=== PATIENT | female | born 1945 | race Caucasian/White ===

== ENCOUNTER 2017-01-22 11:32 | Inpatient (IN) | payer MEDICARE ==
[~2017-01-22] VITALS: Ht 160 cm; Wt 70.3 kg
[2017-01-22] MEDS ORDERED: HYDR12.5 PO (12:44)
[2017-01-22] MEDS ORDERED: CYAN10009 PO (12:44)
[2017-01-22] MEDS ORDERED: CALC950T2 PO (13:29)
[2017-01-22] MEDS ORDERED: OMEG1CAP PO (13:29)
[2017-01-22] MEDS ORDERED: METF500T4 PO (13:29)
[2017-01-22] MEDS ORDERED: LEVO25TA2 PO (13:29)
[2017-01-22] MEDS ORDERED: CHOL100062 PO (13:29)
[2017-01-22] MEDS ORDERED: SIMV20TA6 PO (13:29)
[2017-01-22] MEDS ORDERED: CARB-93 PO (13:29)
[2017-01-22 16:12] VITALS: BP 119/44
[2017-01-22] MEDS: METFORMIN HCL 500 MG TABLET PO SCH (18:51)
[2017-01-22] MEDS: CARBIDOPA/LEVODOPA 25-100MG TABLET PO SCH ×3 (18:52→21:25)
[2017-01-22] MEDS: SIMVASTATIN 20 MG TABLET PO SCH (18:59)
--- NOTE | 2017-01-22 19:35 | NUR ---
Received pt in bed, awake alert and oriented watching TV. No acute distress noted. Verbally responsive and able to make needs known. Denies any pain or discomfort at this time. All safety measures and fall precautions maintained. Call light within reach. Will continue to monitor.
[2017-01-22] MEDS ORDERED: SIMVASTATIN 20 MG TABLET PO SCH (21:00)
--- NOTE | 2017-01-22 21:00 | NUR ---
Patient is new admission. Has order for Sinemet 25-100 mg QID, per pt that is what she takes at home regularly. According to AM nurse, pharmacy made aware of frequency of medication and agreed upon unscheduled administration time. Attempted to give 2100 dose but unavailable. Gave medication on unscheduled time of 2100 this shift (01/22/2017). Well tolerated. Charge nurse made aware. Will continue to monitor.
[2017-01-22] MEDS: SENNOSIDES/DOCUSATE SODIUM TABLET PO SCH (21:25)
[2017-01-23] MEDS: LEVOTHYROXINE SODIUM 50 MCG TABLET PO SCH (06:18)
--- NOTE | 2017-01-23 06:28 | NUR ---
Pt slept intermittently throughout the evening. No acute distress noted. Denies pain or discomfort. All due medications given as ordered by MD. Well tolerated. Kept clean and dry. All needs met promptly. All safety measures and fall precautions maintained. Call light within reach. Will continue to monitor.
[2017-01-23] MEDS ORDERED: LEVOTHYROXINE SODIUM 25 MCG TABLET PO SCH (07:00)
[2017-01-23 07:54] LABS: CARBON DIOXIDE 30 mmol/L (21-32); CHLORIDE 107 mmol/L (98-107); CHOLESTEROL 143 mg/dL (<200); CREATININE 0.8 mg/dL (0.6-1.3); GLUCOSE 107 mg/dL (74-106); HDL CHOLESTEROL 49 mg/dL (40-60); PHOSPHOROUS 3.4 mg/dL (2.5-4.9); POTASSIUM 4.3 mmol/L (3.5-5.1); TRIGLYCERIDES 91 MG/DL (30-150); UREA NITROGEN, BLOOD 21 mg/dL (7-18)
[2017-01-23 08:04] LABS: BASOPHILS % (AUTO) 0.3 % (0.0-2.0); EOSINOPHILS # (AUTO) 0.1 K/uL (0.0-0.7); EOSINOPHILS % (AUTO) 3.3 % (0.0-7.0); HEMATOCRIT 37.6 % (37-47); HEMOGLOBIN 12.6 G/DL (12.0-16.0); LYMPHOCYTES # (AUTO) 1.7 K/UL (0.8-4.8); LYMPHOCYTES % (AUTO) 37.7 % (20.5-51.5); MEAN CORPUSCULAR HEMOGLOBIN 29.7 UUG (27.0-31.0); MEAN CORPUSCULAR HGB CONC 34 g/dL (32.0-37.0); MEAN CORPUSCULAR VOLUME 88.5 FL (81.0-99.0); MONOCYTES # (AUTO) 0.5 K/UL (0.1-1.30); MONOCYTES % (AUTO) 10.6 % (0.0-11.0); NEUTROPHILS # (AUTO) 2.1 K/UL (1.8-8.9); NEUTROPHILS % (AUTO) 48.1 % (38.5-71.5); PLATELET COUNT (AUTO) 144 K/UL (150-450); RED BLOOD CELL COUNT(AUTO) 4.25 MIL/UL (4.2-5.4); WHITE BLOOD COUNT (AUTO) 4.4 K/UL (4.0-11.2)
--- NOTE | 2017-01-23 08:04 | NUR ---
Received patient awake, alert x4. In bed with occupational therapy. Not in any form of distress. Denies any pain but with generalized aches, patient said she does not need pain medications at this time.
[2017-01-23 08:38] VITALS: BP 125/61
[2017-01-23] MEDS: HYDROCHLOROTHIAZIDE 12.5 MG CAPSULE PO SCH (08:46)
[2017-01-23] MEDS: CARBIDOPA/LEVODOPA 25-100MG TABLET PO SCH ×4 (08:46→21:02)
[2017-01-23] MEDS: CHOLECALCIFEROL 1,000 UNIT TABLET PO SCH ×3 (08:46→18:06)
[2017-01-23] MEDS: CALCIUM CITRATE 950MG TAB PO SCH (08:46)
[2017-01-23] MEDS: OMEGA-3 FATTY ACIDS/FISH OIL CAPSULE PO SCH ×3 (08:46→18:06)
[2017-01-23] MEDS ORDERED: BISACODYL 5 MG TABLET.DR PO PRN (11:45)
[2017-01-23] MEDS ORDERED: MAGNESIUM CITRATE 296 ML BOTTLE PO ONE (11:45)
[2017-01-23] MEDS ORDERED: ACETAMINOPHEN 325 MG TABLET PO PRN (11:45)
--- NOTE | 2017-01-23 14:20 | NUR ---
Loose stools after Magnesium Citrate given. 3 episodes of loose stools, non-foul smelling no associated vomiting or abdominal pain noted. Paged and called Dr. Blount. No call back as of the moment.
--- NOTE | 2017-01-23 15:29 | NUR ---
No loose stools as of the moment. No new orders. Will continue to monitor
--- NOTE | 2017-01-23 15:32 | NUR ---
Dr. Blount informed. No new orders at this time. Will continue to monitor.
[2017-01-23] MEDS: METFORMIN HCL 500 MG TABLET PO SCH (18:06)
[2017-01-23] MEDS: SIMVASTATIN 20 MG TABLET PO SCH (18:06)
[2017-01-23 19:57] VITALS: BP 118/89
--- NOTE | 2017-01-23 20:00 | NUR ---
RECEIVED PATIENT AWAKE IN BED. PATIENT IS A/OX 4. DENIES PAIN OR DISCOMFORT. NO RESP. DISTRESS NOTED. VS WNL. PATIENT REQUESTING FOR SLEEPING PILL. WILL CALL OUT TO MD FOR FURTHER ORDERS. CALL LIGHT IN REACH. BED ALARM ON. ALL NEEDS ATTENDED. WILL CONTINUE TO MONITOR.
--- NOTE | 2017-01-23 20:05 | NUR ---
RECEIVED ORDER FOR PATIENT TO HAVE RESTORIL 15MG PO PRN FOR SLEEP. WILL CONTINUE TO MONITOR.
[2017-01-23] MEDS: SENNOSIDES/DOCUSATE SODIUM TABLET PO SCH (21:00)
[2017-01-23] MEDS: TEMAZEPAM 15 MG CAPSULE PO PRN (21:02)
--- NOTE | 2017-01-23 21:05 | NUR ---
PATIENT GIVEN RESTORIL 15 MG PO PRN FOR SLEEP. BED ALARM ON. ALL NEEDS ATTENDED.
[2017-01-23] MEDS ORDERED: TEMAZEPAM 15 MG CAPSULE ONE (21:07)
--- NOTE | 2017-01-24 | NUR ---
PATIENT ASLEEP IN BED. NO RESP. DISTRESS NOTED. BED ALARM ON. CALL LIGHT IN REACH. ALL NEEDS ATTENDED.
--- NOTE | 2017-01-24 06:15 | NUR ---
PATIENT AWAKE IN BED. SLEPT WELL THROUGHOUT THE NIGHT. RESTORIL EFFECTIVE. DENIES PAIN OR DISCOMFORT. NO RESP. DISTRESS NOTED. BED ALARM ON. CALL LIGHT IN REACH. ALL NEEDS ATTENDED. WILL CONTINUE TO MONITOR.
[2017-01-24] MEDS: LEVOTHYROXINE SODIUM 50 MCG TABLET PO SCH (06:46)
--- NOTE | 2017-01-24 08:00 | NUR ---
Received patient. awake, alert x4. Denies any pain, up with occupational therapy. Tolerating therapy well.
[2017-01-24 08:20] VITALS: BP 119/37
[2017-01-24] MEDS: CARBIDOPA/LEVODOPA 25-100MG TABLET PO SCH ×4 (08:29→20:34)
[2017-01-24] MEDS: CHOLECALCIFEROL 1,000 UNIT TABLET PO SCH ×3 (08:29→16:46)
[2017-01-24] MEDS: CYANOCOBALAMIN 1,000 MCG TABLET PO SCH (08:29)
[2017-01-24] MEDS: OMEGA-3 FATTY ACIDS/FISH OIL CAPSULE PO SCH ×3 (08:29→16:45)
[2017-01-24] MEDS: CALCIUM CITRATE 950MG TAB PO SCH (08:29)
[2017-01-24] MEDS: HYDROCHLOROTHIAZIDE 12.5 MG CAPSULE PO SCH (08:29)
--- NOTE | 2017-01-24 11:30 | NUR ---
UP WITH PHYSICAL THERAPY. TOLERATING THERAPY WELL.
[2017-01-24] MEDS: SIMVASTATIN 20 MG TABLET PO SCH (17:04)
[2017-01-24] MEDS: METFORMIN HCL 500 MG TABLET PO SCH (17:04)
--- NOTE | 2017-01-24 18:43 | NUR ---
Patient sitting in wheel chair. Awake, alert x4. Denies any pain . Not in any form of distress. Call light within reach.
--- NOTE | 2017-01-24 20:00 | NUR ---
RECEIVED PATIENT AWAKE IN BED. A/O X4. DENIES PAIN OR DISCOMFORT. NO RESP. DISTRESS NOTED. CALL LIGHT IN REACH. ALL NEEDS ATTENDED. BED ALARM ON. WILL CONTINUE TO MONITOR.
[2017-01-24 20:06] VITALS: BP 117/55
[2017-01-24] MEDS: SENNOSIDES/DOCUSATE SODIUM TABLET PO SCH (20:33)
--- NOTE | 2017-01-24 21:00 | NUR ---
PATIENT GIVEN RESTORIL 15MG PO PRN FOR SLEEP REQUESTED BY PATIENT. BED ALARM ON. CALL LIGHT IN REACH. ALL NEEDS ATTENDED. WILL CONTINUE TO MONITOR.
[2017-01-24] MEDS: TEMAZEPAM 15 MG CAPSULE PO PRN (21:04)
--- NOTE | 2017-01-24 23:01 | NUR ---
PATIENT ASLEEP IN BED. SLEEPING WELL. NO RESP. DISTRESS NOTED. CALL LIGHT IN REACH. ALL NEEDS ATTENDED. WILL CONTINUE TO MONITOR.
--- NOTE | 2017-01-25 06:00 | NUR ---
PATIENT ASLEEP IN BED. RESTORIL EFFECTIVE. NO S/S OF PAIN OR DISCOMFORT. NO RESP. DISTRESS NOTED. BED ALARM ON. CALL LIGHT IN REACH. ALL NEEDS ATTENDED.
[2017-01-25] MEDS: LEVOTHYROXINE SODIUM 50 MCG TABLET PO SCH (06:34)
[2017-01-25 08:00] VITALS: BP 112/55
[2017-01-25] MEDS: OMEGA-3 FATTY ACIDS/FISH OIL CAPSULE PO SCH ×3 (08:15→17:26)
[2017-01-25] MEDS: HYDROCHLOROTHIAZIDE 12.5 MG CAPSULE PO SCH (08:15)
[2017-01-25] MEDS: CHOLECALCIFEROL 1,000 UNIT TABLET PO SCH ×3 (08:15→17:26)
[2017-01-25] MEDS: CARBIDOPA/LEVODOPA 25-100MG TABLET PO SCH ×4 (08:15→20:37)
[2017-01-25] MEDS: CALCIUM CITRATE 950MG TAB PO SCH (08:15)
--- NOTE | 2017-01-25 08:15 | NUR ---
Received patient awake, alert x4. Sitting up bed. Not in any form of distress. Denies any pain. Will continue to monitor.
--- NOTE | 2017-01-25 12:00 | NUR ---
Informed Dr. Anuj Gale of podiatry consult. Left message on cellphone.
[2017-01-25] MEDS: SIMVASTATIN 20 MG TABLET PO SCH (17:26)
[2017-01-25] MEDS: METFORMIN HCL 500 MG TABLET PO SCH (17:26)
--- NOTE | 2017-01-25 19:30 | NUR ---
Seen patient during rounds seated on her wheelchair watching TV. Patient is A/O x4, alert and verbally responsive. Discussed to patient the importance of taking her stool softer. Patient understood about the need to take the medication, she said she will take tonight's dose. Reminded patient to use call light when in need. Provided safety measures.
[2017-01-25 20:03] VITALS: BP 126/64
[2017-01-25] MEDS: SENNOSIDES/DOCUSATE SODIUM TABLET PO SCH (20:38)
--- NOTE | 2017-01-25 21:15 | NUR ---
Seen by Dr. Anuj Gale licensed investment sales assistant. Left middle toe's callus scraped, applied with triple antibiotic ointment and covered with band-aid. Nail also trimmed. With no new order.
[2017-01-25] MEDS: TEMAZEPAM 15 MG CAPSULE PO PRN (22:01)
[2017-01-26] MEDS: LEVOTHYROXINE SODIUM 50 MCG TABLET PO SCH (06:54)
--- NOTE | 2017-01-26 07:48 | NUR ---
Patient slept well last night. Denies of pain. Vitals are stable. Breathing even and non labored. Will endorse to am shift nurse.
[2017-01-26] MEDS: CARBIDOPA/LEVODOPA 25-100MG TABLET PO SCH ×4 (08:16→20:57)
[2017-01-26] MEDS: CALCIUM CITRATE 950MG TAB PO SCH (08:16)
[2017-01-26] MEDS: CHOLECALCIFEROL 1,000 UNIT TABLET PO SCH ×3 (08:16→17:15)
[2017-01-26] MEDS: CYANOCOBALAMIN 1,000 MCG TABLET PO SCH (08:16)
[2017-01-26] MEDS: HYDROCHLOROTHIAZIDE 12.5 MG CAPSULE PO SCH (08:16)
[2017-01-26] MEDS: OMEGA-3 FATTY ACIDS/FISH OIL CAPSULE PO SCH ×3 (08:16→17:14)
[2017-01-26 08:46] VITALS: BP 126/61
--- NOTE | 2017-01-26 09:05 | NUR ---
pt seen on rounding. pt continues to be stable with vitals. pt tolerates room air and afebrile. pt continues to have unsteady gait. pt states that she didnt sleep very well. pt refused to have early am pt schedule. pt assisted to the bathroom. used a wheelchair for transport. will continue to monitor.
[2017-01-26] MEDS: METFORMIN HCL 500 MG TABLET PO SCH (17:15)
[2017-01-26] MEDS: SIMVASTATIN 20 MG TABLET PO SCH (17:15)
--- NOTE | 2017-01-26 18:26 | NUR ---
pt stable throughout the day. pt ate all meals and offered assistance. pt participated in therapy with no pain noted. pt states she wanted to leave. pt no signs of acute distress. no pain on toe. will endorse to civil engineer nurse.
--- NOTE | 2017-01-26 20:00 | NUR ---
Patient already laying on bed saying she's really tired and she's ready to sleep. Patient requested her restoril so she can sleep early. Middle Toe finger checked, no s/s of any infection. Safety measures provided. Call light in reach. Will continue to monitor.
[2017-01-26 20:10] VITALS: BP 126/51
[2017-01-26] MEDS: SENNOSIDES/DOCUSATE SODIUM TABLET PO SCH (21:00)
[2017-01-26] MEDS: TEMAZEPAM 15 MG CAPSULE PO PRN (21:03)
[2017-01-27] MEDS: LEVOTHYROXINE SODIUM 50 MCG TABLET PO SCH (07:04)
[2017-01-27] MEDS: CHOLECALCIFEROL 1,000 UNIT TABLET PO SCH ×3 (08:17→17:18)
[2017-01-27] MEDS: CARBIDOPA/LEVODOPA 25-100MG TABLET PO SCH ×4 (08:18→20:43)
[2017-01-27] MEDS: CALCIUM CITRATE 950MG TAB PO SCH (08:18)
[2017-01-27] MEDS: OMEGA-3 FATTY ACIDS/FISH OIL CAPSULE PO SCH ×3 (08:18→17:18)
[2017-01-27] MEDS: HYDROCHLOROTHIAZIDE 12.5 MG CAPSULE PO SCH (08:18)
[2017-01-27 08:27] VITALS: BP 107/51
--- NOTE | 2017-01-27 08:58 | NUR ---
pt seen on rounding. t continues to take meds whole. no pain noted. pt states that she had slept better than previous nights. pt continues to refuse early PT sessions. will continue to monitor.
--- NOTE | 2017-01-27 13:56 | NUR ---
INTERDISCIPLINARY TEAM SUMMARY
--- NOTE | 2017-01-27 14:44 | NUR ---
pt has no new injuries. photo of toe taken. no signs of infection. will continue to monitor.
[2017-01-27] MEDS: METFORMIN HCL 500 MG TABLET PO SCH (17:18)
[2017-01-27] MEDS: SIMVASTATIN 20 MG TABLET PO SCH (17:18)
--- NOTE | 2017-01-27 18:49 | NUR ---
pt stable throughout the day. pt continues to have no pain and participates in therapy. pt had no new concerns. pt remains to take pills whole. will endorse to division engineer nurse.
[2017-01-27 19:45] VITALS: BP 128/61
--- NOTE | 2017-01-27 20:11 | NUR ---
Pt. seated on her wheelchair watching TV. Breathing even and nonlabored. Patient requested for her sleeping pill, pt. wanted to rest early. Safety measures provided, made sure that her wheelchair is locked. Call light in reach. will continue to monitor the patient.
[2017-01-27] MEDS: TEMAZEPAM 15 MG CAPSULE PO PRN (20:43)
[2017-01-27] MEDS: SENNOSIDES/DOCUSATE SODIUM TABLET PO SCH (21:00)
--- NOTE | 2017-01-27 21:30 | NUR ---
pt. went to bed, (from her wheelchair) with minimal assist. Turned the lights off and placed call light in reach.
[2017-01-28] MEDS: LEVOTHYROXINE SODIUM 50 MCG TABLET PO SCH (06:26)
--- NOTE | 2017-01-28 07:14 | NUR ---
pt. slept the whole night. Vitals signs stable. breathing even and nonlabored. will endorse to AM nurse.
[2017-01-28 07:30] VITALS: BP 126/62
--- NOTE | 2017-01-28 08:40 | NUR ---
Floor Mechanic Cad Specialist met with patient at bedside to assess her needs and provide support. Patient is a 71 year old female with history of HTN, DM, Parkinson's Dis. and MS who presented with recent progressive weakness, ataxia, falls and difficulty walking. She is therefore admitted to ARU due to functional decline and impaired mobility. Patient stated that she has difficulty getting around her house without her (also a patient in ARU) there to help her. Mental Status: Patient appeared alert and oriented x4 during interview. She presented with depressed and anxious mood with congruent affect. Patient appeared tearful at times throughout the interview. Patient stated, "I don't want to be here anymore...I just want to go back home." Pt reported that she "can do most things myself around the house," however, was admitted to ARU for functional decline and impaired mobility. Patient's insight and judgment appear to be limited. Patient has been in the hospital since January 22, 2017. Patient is pleasant and cooperative throughout interview. Pt reported that she linnea best when she can look at pictures of her grandchildren on her iPad. Pt appears to be coping well with PT and OT. She stated, "I love working with the people here...they really push you." Support System: Patient is and mentioned 1 son who lives in the [facility] area. During the interview, patient's and two friends were bedside. Patient stated, "I'm so sumeet to have friends like these." Patient reported that she is also involved in her [employer] and is a member of a support group there called the "[employer]," with a mindset of "always be better at supporting each other." Goals: Patient reports that her goal is to be able to live in her home. Interventions: Cad Specialist engaged in active listening. SW provided emotional support and counseling. SW will provide linkage to case management. SW provided caregiving referrals to patient and family. SW will encourage pt to comply with rehab goals.
[2017-01-28] MEDS: CHOLECALCIFEROL 1,000 UNIT TABLET PO SCH ×3 (08:42→17:49)
[2017-01-28] MEDS: OMEGA-3 FATTY ACIDS/FISH OIL CAPSULE PO SCH ×3 (08:42→17:50)
[2017-01-28] MEDS: CARBIDOPA/LEVODOPA 25-100MG TABLET PO SCH ×4 (08:42→20:48)
[2017-01-28] MEDS: HYDROCHLOROTHIAZIDE 12.5 MG CAPSULE PO SCH (08:42)
[2017-01-28] MEDS: CYANOCOBALAMIN 1,000 MCG TABLET PO SCH (08:42)
[2017-01-28] MEDS: CALCIUM CITRATE 950MG TAB PO SCH (08:43)
--- NOTE | 2017-01-28 13:39 | NUR ---
I agree Addendum: 01/28/17 at 1341 by AMANDA CHACON OT Amended: Links added.
[2017-01-28] MEDS: METFORMIN HCL 500 MG TABLET PO SCH (17:50)
[2017-01-28] MEDS: SIMVASTATIN 20 MG TABLET PO SCH (17:50)
--- NOTE | 2017-01-28 19:30 | NUR ---
RECEIVED PATIENT FROM DAY SHIFT NURSE. SHIFT REPORT AT BEDSIDE. PT A/O X4 WITH NO SIGNS OF PAIN, SOB, OR ACUTE DISTRESS. PT IN SAME ROOM WITH SPOUSE. PERTINENT ASSESSMENTS COMPLETED. CALL LIGHT PLACED WITHIN REACH OF PATIENT. WILL CONTINUE TO MONITOR PT THROUGH OUT SHIFT.
[2017-01-28 19:40] VITALS: BP 130/48
[2017-01-28] MEDS: SENNOSIDES/DOCUSATE SODIUM TABLET PO SCH (20:49)
[2017-01-28] MEDS ORDERED: SENNOSIDES/DOCUSATE SODIUM TABLET PO SCH (21:00)
[2017-01-28] MEDS: TEMAZEPAM 15 MG CAPSULE PO PRN (21:22)
[2017-01-29] MEDS: LEVOTHYROXINE SODIUM 50 MCG TABLET PO SCH (06:31)
--- NOTE | 2017-01-29 06:44 | NUR ---
PATIENT STABLE THROUGH OUT SHIFT. NO SIGNS OF PAIN, SOB, OR ACUTE DISTRESS. SLEPT INTERMITTENTLY DURING THE NIGHT. ALL NEEDS ATTENDED TO. MEDICATIONS ADMINISTERED ORDERED. SAFETY MEASURES IMPLEMENTED. CALL LIGHT PLACED WITHIN REACH. WILL ENDORSE TO DAY SHIFT NURSE.
[2017-01-29 08:00] VITALS: BP 115/53
[2017-01-29] MEDS: HYDROCHLOROTHIAZIDE 12.5 MG CAPSULE PO SCH (08:39)
[2017-01-29] MEDS: CHOLECALCIFEROL 1,000 UNIT TABLET PO SCH ×3 (08:39→18:04)
[2017-01-29] MEDS: OMEGA-3 FATTY ACIDS/FISH OIL CAPSULE PO SCH ×3 (08:39→18:04)
[2017-01-29] MEDS: CARBIDOPA/LEVODOPA 25-100MG TABLET PO SCH ×4 (08:40→20:06)
[2017-01-29] MEDS: CALCIUM CITRATE 950MG TAB PO SCH (08:42)
--- NOTE | 2017-01-29 15:31 | NUR ---
DAILY NOTE IN TO SEE HER TO GIVE UPDATE ON . THE NURSE OVER AT [facility] STATES THAT THE PT IS STILL IN SX AT THIS TIME WILL BE OUT AROUND 1800. POSSIBLY BACK TO [facility] AROUND 2100. SHE ALSO INFORMED ME OF AN APPT SHE HAS ON 02/02/[address] [place] [address] [facility] FOR HER ONCE A MONTH TYSABRI INFUSION FOR HER MULTIPLE SCLEROSIS. CASE MANAGEMENT IS AWARE AND SETTING UP TRANSPORTATION TO AND FROM
[2017-01-29] MEDS: SIMVASTATIN 20 MG TABLET PO SCH (18:03)
[2017-01-29] MEDS: METFORMIN HCL 500 MG TABLET PO SCH (18:04)
--- NOTE | 2017-01-29 19:30 | NUR ---
RECEIVED PATIENT FROM DAY SHIFT NURSE. SHIFT REPORT AT BEDSIDE. PATIENT SITTING COMFORTABLY IN WHEELCHAIR AT BEDSIDE. NO SIGNS OF PAIN, SOB, OR ACUTE DISTRESS. PERTINENT ASSESSMENT COMPLETED. SAFETY MEASURES TO BE IMPLEMENTED. CALL LIGHT PLACED WITHIN REACH OF PATIENT. WILL CONTINUE TO MONITOR PATIENT THROUGH OUT SHIFT.
[2017-01-29 19:40] VITALS: BP 129/53
[2017-01-29] MEDS: SENNOSIDES/DOCUSATE SODIUM TABLET PO SCH (20:07)
[2017-01-29] MEDS: TEMAZEPAM 15 MG CAPSULE PO PRN (22:01)
[2017-01-30] MEDS: LEVOTHYROXINE SODIUM 50 MCG TABLET PO SCH (06:23)
--- NOTE | 2017-01-30 06:39 | NUR ---
PATIENT STABLE THROUGH OUT SHIFT WITH NO SIGNS OF PAIN, ACUTE DISTRESS, OR SOB. PATIENT SLEPT WELL THROUGH THE NIGHT. ALL MEDICATIONS ADMINISTERED ORDERED PER MD. ALL NEEDS ATTENDED TO. SAFETY MEASURES IMPLEMENTED. CALL LIGHT WITHIN REACH OF PATIENT. WILL ENDORSE TO DAY SHIFT NURSE.
[2017-01-30 07:30] VITALS: BP_SYST 121; BP_SYST 133; BP_DIAS 66; BP_DIAS 78
--- NOTE | 2017-01-30 07:30 | NUR ---
Patient awake, up on bed, alert, verbally responsive, coherent, afebrile, not in any form of acute distress. He denies any pain at this time. Assisted to his needs. Call light placed within reach. Reminded to use call light for assistance with verbalized understanding.
[2017-01-30] MEDS: OMEGA-3 FATTY ACIDS/FISH OIL CAPSULE PO SCH ×3 (08:36→17:01)
[2017-01-30] MEDS: HYDROCHLOROTHIAZIDE 12.5 MG CAPSULE PO SCH (08:37)
[2017-01-30] MEDS: CHOLECALCIFEROL 1,000 UNIT TABLET PO SCH ×3 (08:37→17:02)
[2017-01-30] MEDS: CARBIDOPA/LEVODOPA 25-100MG TABLET PO SCH ×4 (08:37→20:27)
[2017-01-30] MEDS: CYANOCOBALAMIN 1,000 MCG TABLET PO SCH (08:37)
[2017-01-30] MEDS: CALCIUM CITRATE 950MG TAB PO SCH (08:39)
[2017-01-30] MEDS: SIMVASTATIN 20 MG TABLET PO SCH (17:02)
[2017-01-30] MEDS: METFORMIN HCL 500 MG TABLET PO SCH (17:02)
--- NOTE | 2017-01-30 19:30 | NUR ---
RECEIVED PATIENT FROM DAY SHIFT NURSE. SHIFT REPORT AT BEDSIDE. PATIENT LYING COMFORTABLY IN BED WITH NO SIGNS OF PAIN, SOB, OR ACUTE DISTRESS. PERTINENT ASSESSMENT COMPLETED. SAFETY MEASURES TO BE IMPLEMENTED. CALL LIGHT PLACED WITHIN REACH OF PATIENT. WILL CONTINUE TO MONITOR PT THROUGH OUT SHIFT.
[2017-01-30 19:40] VITALS: BP 130/77
[2017-01-30] MEDS: SENNOSIDES/DOCUSATE SODIUM TABLET PO SCH (20:28)
[2017-01-30] MEDS: TEMAZEPAM 15 MG CAPSULE PO PRN (23:32)
[2017-01-31] MEDS: LEVOTHYROXINE SODIUM 50 MCG TABLET PO SCH (06:27)
--- NOTE | 2017-01-31 06:45 | NUR ---
PT SLEPT WELL THROUGH THE SHIFT. NO SIGNS OF PAIN, ACUTE DISTRESS, OR SOB. ALL NEEDS ATTENDED TO. MEDS ADMINISTERED ORDERED. SAFETY MEASURES IMPLEMENTED. CALL LIGHT WITHIN REACH OF PATIENT. WILL ENDORSE TO DAY SHIFT NURSE.
[2017-01-31 07:08] VITALS: BP 111/60
[2017-01-31] MEDS: CHOLECALCIFEROL 1,000 UNIT TABLET PO SCH ×3 (08:59→17:12)
[2017-01-31] MEDS: CARBIDOPA/LEVODOPA 25-100MG TABLET PO SCH ×4 (08:59→20:54)
[2017-01-31] MEDS: OMEGA-3 FATTY ACIDS/FISH OIL CAPSULE PO SCH ×3 (08:59→17:12)
[2017-01-31] MEDS: CALCIUM CITRATE 950MG TAB PO SCH (08:59)
[2017-01-31] MEDS: HYDROCHLOROTHIAZIDE 12.5 MG CAPSULE PO SCH (08:59)
--- NOTE | 2017-01-31 10:41 | NUR ---
VOIDING WELL WITHOUT DIFFICULTY. ENCOURAGE HER TO CALL FOR ASSIST TO THE BR BUT SHE DOES NOT CALL FOR HELP SHE GOES ON HER OWN. FRENatividad REMIND HER TO CALL D/T HER UNSTEADINESS. SHE CONTINUES TO GO WITHOUT CALLING. Addendum: 01/31/17 at 1047 by Natalie Sanchez RN Amended: Links added.
--- NOTE | 2017-01-31 13:19 | NUR ---
OUT ON PASS LEFT WITH SON TO GO OUT TO HOUSE AND RUN SOME ERRANDS. PT TOOK HER MEDS LEFT IN PHARMACY HOME. OUT ON PASS FROM SIGNED OK'D BY MD FAYE
--- NOTE | 2017-01-31 17:00 | NUR ---
OUT ON PASS RETURNED TO [facility] ARU IN NO ACUTE DISTRESS.
[2017-01-31] MEDS: METFORMIN HCL 500 MG TABLET PO SCH (17:12)
[2017-01-31] MEDS: SIMVASTATIN 20 MG TABLET PO SCH (17:12)
[2017-01-31 19:45] VITALS: BP 146/83
[2017-01-31] MEDS: SENNOSIDES/DOCUSATE SODIUM TABLET PO SCH (20:54)
[2017-01-31 22:09] VITALS: BP 146/83
[2017-02-01] MEDS: LEVOTHYROXINE SODIUM 50 MCG TABLET PO SCH (06:20)
[2017-02-01 07:03] VITALS: BP 113/60
--- NOTE | 2017-02-01 08:13 | NUR ---
Patient seated dangling at this time. Patient able to accomplish eating without assist.
[2017-02-01] MEDS: OMEGA-3 FATTY ACIDS/FISH OIL CAPSULE PO SCH ×3 (09:03→16:46)
[2017-02-01] MEDS: HYDROCHLOROTHIAZIDE 12.5 MG CAPSULE PO SCH (09:03)
[2017-02-01] MEDS: CALCIUM CITRATE 950MG TAB PO SCH (09:03)
[2017-02-01] MEDS: CYANOCOBALAMIN 1,000 MCG TABLET PO SCH (09:03)
[2017-02-01] MEDS: CHOLECALCIFEROL 1,000 UNIT TABLET PO SCH ×3 (09:03→16:46)
[2017-02-01] MEDS: CARBIDOPA/LEVODOPA 25-100MG TABLET PO SCH ×4 (09:03→20:27)
[2017-02-01] MEDS: SIMVASTATIN 20 MG TABLET PO SCH (17:25)
[2017-02-01] MEDS: METFORMIN HCL 500 MG TABLET PO SCH (17:25)
--- NOTE | 2017-02-01 18:40 | NUR ---
Handoff for night nurse.
--- NOTE | 2017-02-01 20:00 | NUR ---
Received pt sitting on her wheelchair, alert and oriented x3. Pleasant, calm and cooperative to care. Able to make needs known. No apparent distress noted. Denies pain. No SOB noted. Call light within reach. Encouraged to verbalize needs and concerns. Safety precautions observed and maintained. All needs attended.
[2017-02-01] MEDS: SENNOSIDES/DOCUSATE SODIUM TABLET PO SCH (20:27)
[2017-02-01 21:35] VITALS: BP 135/69
[2017-02-01] MEDS: TEMAZEPAM 15 MG CAPSULE PO PRN (23:16)
--- NOTE | 2017-02-02 05:30 | NUR ---
Patient slept comfortably throughout the night. In no apparent distress. No complaints of pain or discomfort. Frequently checked for safety. All needs met.
[2017-02-02] MEDS: LEVOTHYROXINE SODIUM 50 MCG TABLET PO SCH (06:25)
[2017-02-02 07:37] VITALS: BP 130/72
--- NOTE | 2017-02-02 08:00 | NUR ---
VSS 97.4-59-18 TO 20 BP 130/72. SATS 96% ON ROOM AIR. COLOR GOOD. PATIENT IS ALERT & ORIENTED X 3 WITH APPROPRIATE AFFECT. SKIN WARM, DRY, AND INTACT WITH NO IV OR IVHL. NO SKIN BREAKDOWNS. PATIENT HAS SLIGHT TREMORS TO HANDS BUT PATIENT IS STILL ABLE TO HOLD A GLASS AND FEED HERSELF. PATIENT WILL GO TO THE DOCTOR'S OFFICE, [facility] TODAY FOR HER TYSAVIR INFUSIONS AND TRANSPORTATION HAS ALREADY BEEN ARRANGED. PATIENT HAS BEEN GETTING THIS TREATMENT FOR A VERY LONG TIME NOW. PATIENT SHOWS NO SIGNS OF ACUTE CARDIAC/RESPIRATORY DISTRESS OR SUPPRESSION.
[2017-02-02] MEDS: OMEGA-3 FATTY ACIDS/FISH OIL CAPSULE PO SCH ×3 (10:09→17:36)
[2017-02-02] MEDS: CHOLECALCIFEROL 1,000 UNIT TABLET PO SCH ×3 (10:09→17:37)
[2017-02-02] MEDS: CARBIDOPA/LEVODOPA 25-100MG TABLET PO SCH ×4 (10:09→20:17)
[2017-02-02] MEDS: CALCIUM CITRATE 950MG TAB PO SCH (10:09)
[2017-02-02] MEDS: HYDROCHLOROTHIAZIDE 12.5 MG CAPSULE PO SCH (10:11)
--- NOTE | 2017-02-02 13:00 | NUR ---
PATIENT IS IN ROUTE TO [facility] FOR HER TYSAVRI INFUSION FOR HER MULTIPLE SCLEROSIS. PATIENT DENIES PAINS. PATIENT SHOWS NO SIGNS OF ACUTE CARDIAC/RESPIRATORY DISTRESS OR SUPPRESSION. NURSE GAVE A THOROUGH BEDSIDE REPORT TO THE AMBULANCE PRIOR TO TRANSPORT. NURSE ALSO SPOKE TO [facility], YOUTH MANAGER TO DR. BEAN AND OFFERRED A REPORT BUT THE FEMALE YOUTH MANAGER FOR DR. BEAN REQUESTED A FAXED REPORT BUT NURSE DID NOT WANT TO VIOLATE ANY UNFORESEEN PRIVACY LAWS. SO, NURSE LEFT THE DIRECT LINE TO [facility] [phone] AND INSTRUCTED THE YOUTH MANAGER TO HAVE NURSE/STAFF CALL HER IF THEY HAD ANY QUESTIONS.
--- NOTE | 2017-02-02 16:42 | NUR ---
PATIENT IS CURRENTLY AT [facility] FOR TYSAVRI INJECTIONS. Addendum: 02/02/17 at 1643 by DELLA BAUTISTA RN Amended: Links added.
--- NOTE | 2017-02-02 16:43 | NUR ---
PATIENT IS CURRENTLY ON [place] AT [facility] FOR TYSAVIR INFUSION. Addendum: 02/02/17 at 1643 by DELLA BAUTISTA RN Amended: Links added.
--- NOTE | 2017-02-02 17:00 | NUR ---
PATIENT HAS NOT YET RETURNED FROM [facility] FOR HER TYSVARI TREATMENTS. Addendum: 02/02/17 at 1715 by DELLA BAUTISTA RN Amended: Links added.
[2017-02-02] MEDS: METFORMIN HCL 500 MG TABLET PO SCH (17:29)
[2017-02-02] MEDS: SIMVASTATIN 20 MG TABLET PO SCH (17:37)
--- NOTE | 2017-02-02 18:30 | NUR ---
PATIENT RETURNED FROM [facility] VIA AMBULANCE @ 17:30 P.M. IN STABLE CONDITION BUT NURSE SEES NO SIGNIFICANT CHANGE IN HER CONDITION. NURSE CONTINUES TO SEE TREMORS TO THE LEGS AND BUEs. ACCUCHECK=96 MG/DL---NURSE HELD GLUCOPHAGE PRIOR TO DINNER. PATIENT DENIES PAINS AND SHOWS NO SIGNS OF ACUTE CARDIAC/RESPIRATORY DISTRESS OR SUPPRESSION.
--- NOTE | 2017-02-02 19:30 | NUR ---
RECEIVED PATIENT FROM DAY SHIFT NURSE. SHIFT REPORT AT BEDSIDE. PATIENT A/O X4. FOUND SITTING IN WHEELCHAIR AT START OF SHIFT WITH NO SIGNS OF PAIN, SOB, OR ACUTE DISTRESS. PERTINENT ASSESSMENTS COMPLETED. CALL LIGHT WITHIN REACH OF PATIENT. WILL CONTINUE TO MONITOR PATIENT THROUGH SHIFT.
[2017-02-02 20:01] VITALS: BP 112/61
[2017-02-02] MEDS: SENNOSIDES/DOCUSATE SODIUM TABLET PO SCH (20:17)
[2017-02-03] MEDS: LEVOTHYROXINE SODIUM 50 MCG TABLET PO SCH (06:33)
--- NOTE | 2017-02-03 06:45 | NUR ---
Patient slept well through shift. Pt stable with no signs of pain, acute distress, or SOB. Able to make needs known. All meds administered as ordered per MD. Vital signs stable through shift. Educated pt on the importance of calling for assistance when trying to using the bathroom in order to prevent falls. Call light within reach of pt. Will endorse to day shift nurse.
--- NOTE | 2017-02-03 07:57 | NUR ---
Received pt lying in bed comfortably, awake, alert and oriented x3. Able to make needs known. No acute distress noted. Denies pain. No SOB noted. Kept clean, dry and comfortable. Call light within reach. All needs anticipated.
[2017-02-03 08:25] VITALS: BP 103/43
[2017-02-03] MEDS: CYANOCOBALAMIN 1,000 MCG TABLET PO SCH (08:37)
[2017-02-03] MEDS: OMEGA-3 FATTY ACIDS/FISH OIL CAPSULE PO SCH ×3 (08:37→17:15)
[2017-02-03] MEDS: CARBIDOPA/LEVODOPA 25-100MG TABLET PO SCH ×4 (08:37→20:14)
[2017-02-03] MEDS: HYDROCHLOROTHIAZIDE 12.5 MG CAPSULE PO SCH (08:37)
[2017-02-03] MEDS: CALCIUM CITRATE 950MG TAB PO SCH (08:38)
[2017-02-03] MEDS: CHOLECALCIFEROL 1,000 UNIT TABLET PO SCH ×3 (08:39→17:15)
--- NOTE | 2017-02-03 15:07 | NUR ---
INTERDISCIPLINARY TEAM CONFERENCE
--- NOTE | 2017-02-03 15:30 | NUR ---
Received patient awake sitting in wheel chair, A/A/O x 4. Not in any form of distress, call light within reach.
--- NOTE | 2017-02-03 16:24 | NUR ---
I Agree Addendum: 02/03/17 at 1624 by EDILSON BOLAÑOS OT Amended: Links added.
--- NOTE | 2017-02-03 16:25 | NUR ---
I Agree Addendum: 02/03/17 at 1625 by EDILSON BOLAÑOS OT Amended: Links added.
[2017-02-03] MEDS: METFORMIN HCL 500 MG TABLET PO SCH (17:15)
[2017-02-03] MEDS: SIMVASTATIN 20 MG TABLET PO SCH (17:15)
--- NOTE | 2017-02-03 19:30 | NUR ---
RECEIVED PATIENT FROM DAY SHIFT NURSE. PT A/O X4, LYING COMFORTABLY IN BED WITH NO SIGNS OF PAIN, SOB, OR ACUTE DISTRESS. PERTINENT ASSESSMENTS COMPLETED. CALL LIGHT PLACED WITHIN REACH OF PT. WILL CONTINUE TO MONITOR PATIENT THROUGH SHIFT.
[2017-02-03 19:40] VITALS: BP 130/67
[2017-02-03] MEDS: SENNOSIDES/DOCUSATE SODIUM TABLET PO SCH (20:14)
[2017-02-04] MEDS: LEVOTHYROXINE SODIUM 50 MCG TABLET PO SCH (06:29)
--- NOTE | 2017-02-04 06:48 | NUR ---
pt slept well through the night. no signs of pain, sob, or acute distress. all needs attended to. pt able to make needs known. medications administered as ordered. informed pt to use call light when needing to get out of bed and use the restroom. call light within reach of pt. will endorse to day shift nurse.
--- NOTE | 2017-02-04 07:00 | NUR ---
Received pt sitting on wheelchair, a/ox4. Able to make needs known. No distress noted. No complaints of pain or discomfort. Breathing even and unlabored with normal respirations. Call light and personal belongings placed within reach. Encouraged to verbalize needs and concerns. Safety and fall precautions observed and maintained. All needs attended. Plan of care discussed.
[2017-02-04 08:00] VITALS: BP 115/52
[2017-02-04] MEDS: CARBIDOPA/LEVODOPA 25-100MG TABLET PO SCH ×4 (08:23→20:29)
[2017-02-04] MEDS: CALCIUM CITRATE 950MG TAB PO SCH (08:23)
[2017-02-04] MEDS: HYDROCHLOROTHIAZIDE 12.5 MG CAPSULE PO SCH (08:23)
[2017-02-04] MEDS: OMEGA-3 FATTY ACIDS/FISH OIL CAPSULE PO SCH ×3 (08:23→17:16)
[2017-02-04] MEDS: CHOLECALCIFEROL 1,000 UNIT TABLET PO SCH ×3 (08:23→17:16)
[2017-02-04] MEDS: METFORMIN HCL 500 MG TABLET PO SCH (17:16)
[2017-02-04] MEDS: SIMVASTATIN 20 MG TABLET PO SCH (17:16)
[2017-02-04 19:45] VITALS: BP 114/57
[2017-02-04] MEDS: SENNOSIDES/DOCUSATE SODIUM TABLET PO SCH (20:29)
[2017-02-05] MEDS: TEMAZEPAM 15 MG CAPSULE PO PRN (01:11)
--- NOTE | 2017-02-05 04:54 | NUR ---
AAOx3-4 forgetful at times. needs attended. will monitor patient. kept comfortable. no acute distress noted. denies any pain nor any discomfort. continent of bowel and bladder. possible discharge to [facility] today.
[2017-02-05] MEDS: LEVOTHYROXINE SODIUM 50 MCG TABLET PO SCH (06:12)
[2017-02-05] MEDS: HYDROCHLOROTHIAZIDE 12.5 MG CAPSULE PO SCH (08:08)
[2017-02-05] MEDS: CHOLECALCIFEROL 1,000 UNIT TABLET PO SCH ×3 (08:08→17:05)
[2017-02-05] MEDS: CARBIDOPA/LEVODOPA 25-100MG TABLET PO SCH ×3 (08:08→17:05)
[2017-02-05] MEDS: CYANOCOBALAMIN 1,000 MCG TABLET PO SCH (08:08)
[2017-02-05] MEDS: OMEGA-3 FATTY ACIDS/FISH OIL CAPSULE PO SCH ×3 (08:08→17:05)
[2017-02-05] MEDS: CALCIUM CITRATE 950MG TAB PO SCH (08:09)
[2017-02-05 08:34] VITALS: BP 120/58
--- NOTE | 2017-02-05 11:49 | NUR ---
pt seen on rounding. pt continues to be stable. no loc changes noted. pt continues to have shullfed gait. pt took meds whole and ate breakfast. pt assisted to the bathroom. will continue to monitor.
[2017-02-05] MEDS: SIMVASTATIN 20 MG TABLET PO SCH (17:05)
[2017-02-05] MEDS: METFORMIN HCL 500 MG TABLET PO SCH (17:05)
--- NOTE | 2017-02-05 18:13 | NUR ---
pt discharged at 1800. vitals stable. no signs of acute distress. pt given discharge instructions including where to get medications and discharge locations. used exitcare instructions such as fall prevention, smoking cessation, and easy to read parkinson. pt verbalizes understanding. pt signed discharge instructions and [facility] list. placed in chart and signed. pt took all meds home prior to discharge. pt took all belongings. pt left with ambulance.
== END 2017-02-05 18:05 | DRG 57 ==
PROVIDERS: ADMIT Physical Medicine & Rehabilitation Pain Medicine; ATTEND Physical Medicine & Rehabilitation Pain Medicine
DX: G20 Parkinson's disease (principal); G35 Multiple sclerosis; E11.9 Type 2 diabetes mellitus without complications; I10 Essential (primary) hypertension; K59.00 Constipation, unspecified; R26.9 Unspecified abnormalities of gait and mobility; R53.1 Weakness; Z91.81 History of falling; R29.6 Repeated falls; E03.9 Hypothyroidism, unspecified; Z87.442 Personal history of urinary calculi; R27.0 Ataxia, unspecified; E78.5 Hyperlipidemia, unspecified
CPT/HCPCS: 36415; 83735; 84100; 85025; 92507; 92523; 97110; 97112; 97116; 97165; 97530; 97535; A4663